=== PATIENT | female | born 1985 | race Caucasian/White ===

== ENCOUNTER 2020-09-24 06:48 | Outpatient (REF) | payer OTHER, SELFPAY ==
[2020-09-24 11:20] LABS: Glucose Urine UA NEG (NEG); Leukocyte Esterase Urine NEG (NEG); Nitrite Urine NEG (NEG); Specific Gravity - Urine >= 1.030 (1.005-1.025); Urine Blood 1+ (NEG); Urine Ketones NEG (NEG); Urine Protein NEG (NEG-TRACE)
[2020-09-24 11:22] LABS: Appearance Urine CLOUDY; Color Urine YELLOW
[2020-09-24 11:27] LABS: Hematocrit 39.8 % (37-47); Hemoglobin 13.1 g/dl (12.0-16.0); Mean Corpuscular HGB Conc 32.9 g/dl (31.0-35.0); Mean Corpuscular Hemoglobin 27.8 pg (27.0-33.0); Mean Corpuscular Volume 84.5 fL (80-98); Mean Platelet Volume 12.3 fL (9.4-12.3); Platelet Count 177 X10*3/uL (160-400); Red Blood Count 4.71 X10*6/uL (4.20-5.50); Red Cell Distribution Width 13.2 % (11.0-16.0); White Blood Count 6.5 X10*3/uL (4.8-10.8)
[2020-09-24 11:36] LABS: Amorphous Sediment Urine 4+ /LPF; Mucus Urine 3+ /LPF; Squamous Epithelial Cell Urine 1+ /LPF; WBC Urine 0 /HPF (0-4)
[2020-09-24 12:01] LABS: TSH reflex Free T4 1.56 uIU/mL (0.32-4.0)
[2020-09-24 12:03] LABS: Alanine Aminotransferase 15 U/L (0-31); Alkaline Phosphatase 56 U/L (39-117); Anion Gap 13 (12-20); Aspartate Amino Transferase 16 U/L (5-31); Bilirubin Total 0.4 mg/dL (0.0-1.0); Blood Urea Nitrogen 9 mg/dL (9-16); Calcium 8.2 mg/dL (8.4-10.2); Carbon Dioxide 23 mmol/L (22-29); Chloride 108 mmol/L (96-108); Cholesterol 169 mg/dL; Estimated Glomerular Filt Rate > 60; Glucose Fasting 91 mg/dL (60-99); HDL Cholesterol 36 mg/dL; LDL Cholesterol Calculated 116 mg/dl; Potassium 4.3 mmol/L (3.3-5.1); Sodium 140 mmol/L (135-145); Total Protein 6.4 g/dL (6.5-8.0); Triglycerides 88 mg/dL
[2020-09-28 11:01] LABS: TS Negative Control Passed; TS Panel A 1; TS Panel B 0; TS Positive Control Passed; TSpotTB Negative (SeeBelow)
== END 2020-09-24 06:49 | disposition home or self-care (01) ==
LOC: HO.HMGCLDS 06:48
PROVIDERS: PCP Internal Medicine; Visit Provider Internal Medicine
DX: Z00.00 Encounter for general adult medical examination without abnormal findings (principal); Z11.1 Encounter for screening for respiratory tuberculosis
CPT/HCPCS: 36415; 80053; 80061; 81001; 84443; 85027; 86481